=== PATIENT | male | born 1945 | race Caucasian/White ===

== ENCOUNTER 2020-10-06 12:35 | Inpatient (IN) ==
[2020-10-06 13:41] LABS: Basophils % 0.4 %; Eosinophils % 0.5 %; Hematocrit 44.2 % (37.5-50.1); Hemoglobin 15.1 g/dL (12.9-16.9); Immature Granulocytes % 3.2 % (0-4); Lymphocytes # 0.3 K/mcL (0.6-4.6); Lymphocytes % 5.1 %; Mean Corpuscular HGB Conc 34.2 g/dL (31.6-35.5); Mean Corpuscular Hemoglobin 28.1 pg (28.0-33.3); Mean Corpuscular Volume 82.2 fL (83.0-100.0); Mean Platelet Volume 9.1 fL (9.4-12.4); Monocytes # 0.4 K/mcL (0.0-1.3); Monocytes % 7.7 %; Neutrophils # 4.7 K/mcL (1.6-8.9); Platelet Count 223 K/mcL (140-400); Red Blood Count 5.38 M/mcL (4.19-5.50); Red Cell Distribution Width 13.6 % (11.5-14.5); Segmented Neutrophils % 83.1 %; White Blood Count 5.7 K/mcL (4.3-11.1)
[2020-10-06 13:49] LABS: INR 2.3; Prothrombin Time 25.7 Seconds (9.4-12.1)
[2020-10-06 13:52] LABS: Activated Partial Thrombo Time 41.5 Seconds (26.0-36.0)
[2020-10-06 13:56] LABS: Alanine Aminotransferase 14 Units/L (7-52); Albumin 3.4 g/dL (3.5-5.7); Albumin/Globulin Ratio 1.3 (1.1-2.2); Alkaline Phosphatase 63 Units/L (34-104); Aspartate Amino Transferase 20 Units/L (13-39); BUN/Creatinine Ratio 23 (6-26); Bilirubin,Total 0.8 mg/dL (0.3-1.0); Blood Urea Nitrogen 24 mg/dL (8-23); Calcium 8.6 mg/dL (8.6-10.3); Carbon Dioxide 26 mEq/L (23-29); Chloride 97 mEq/L (98-107); Globulin 2.6 g/dL (2.4-3.5); Glucose 119 mg/dL (70-105); Osmolality,Calculated 279 (280-300); Phosphorous 2.2 mg/dL (2.7-4.5); Potassium 3.1 mEq/L (3.5-5.1); Sodium 132 mEq/L (136-145); eGFR For African Americans > 60 (> 60); eGFR For Non-African Americans > 60 (> 60)
[2020-10-06 13:57] LABS: Troponin I < 0.03 ng/mL (< 0.04)
[2020-10-06] MEDS ORDERED: Naloxone 0.4 MG/ML INJ IVP PRN (15:50)
[2020-10-06] MEDS ORDERED: Dexamethasone Sodium Phos/PF 10 MG/ML VIAL IVP ONE (16:01)
[2020-10-06] MEDS: Ipratropium 1 PUFF INHALER IH SCH ×2 (16:37→20:01)
[2020-10-06] MEDS: levoFLOXacin 750 MG/150 ML 750 MG/150 ML BAG IVPB SCH (17:37)
[2020-10-06] MEDS: carvediloL 6.25 MG TABLET PO SCH (17:39)
[2020-10-06] MEDS: 0.9 % Sodium Chloride w KCl 20 MEQ/1,000 ML MLS IVC SCH (17:41)
[2020-10-07] MEDS: Ipratropium 1 PUFF INHALER IH SCH ×7 (00:12→23:47)
[2020-10-07] MEDS: *HR* Enoxaparin 40 MG/0.4 ML SYRINGE SQ SCH (05:28)
[2020-10-07] MEDS: 0.9 % Sodium Chloride w KCl 20 MEQ/1,000 ML MLS IVC SCH ×3 (05:29→21:50)
[2020-10-07 06:13] LABS: Hematocrit 35.1 % (37.5-50.1); Hemoglobin 11.9 g/dL (12.9-16.9); Mean Corpuscular HGB Conc 33.9 g/dL (31.6-35.5); Mean Corpuscular Hemoglobin 27.9 pg (28.0-33.3); Mean Corpuscular Volume 82.2 fL (83.0-100.0); Platelet Count 199 K/mcL (140-400); Red Blood Count 4.27 M/mcL (4.19-5.50); Red Cell Distribution Width 13.5 % (11.5-14.5); White Blood Count 4.3 K/mcL (4.3-11.1)
[2020-10-07 06:27] LABS: Activated Partial Thrombo Time 41.8 Seconds (26.0-36.0)
[2020-10-07 06:30] LABS: INR 2.2; Prothrombin Time 24.4 Seconds (9.4-12.1)
[2020-10-07 06:35] LABS: Alanine Aminotransferase 13 Units/L (7-52); Albumin 2.8 g/dL (3.5-5.7); Albumin/Globulin Ratio 1.3 (1.1-2.2); Alkaline Phosphatase 53 Units/L (34-104); Aspartate Amino Transferase 18 Units/L (13-39); BUN/Creatinine Ratio 22 (6-26); Bilirubin,Total 0.8 mg/dL (0.3-1.0); Blood Urea Nitrogen 21 mg/dL (8-23); Carbon Dioxide 25 mEq/L (23-29); Chloride 102 mEq/L (98-107); Globulin 2.2 g/dL (2.4-3.5); Glucose 112 mg/dL (70-105); Magnesium 1.8 mg/dL (1.6-2.6); Osmolality,Calculated 280 (280-300); Phosphorous 1.9 mg/dL (2.7-4.5); Potassium 3.7 mEq/L (3.5-5.1); Sodium 133 mEq/L (136-145); eGFR For African Americans > 60 (> 60); eGFR For Non-African Americans > 60 (> 60)
[2020-10-07] MEDS ORDERED: Dexamethasone 4 MG/ML VIAL IVP ONE (09:00)
[2020-10-07] MEDS: Aspirin Enteric Coated 81 MG Tablet PO SCH (09:40)
[2020-10-07] MEDS: carvediloL 6.25 MG TABLET PO SCH ×2 (09:41→17:47)
[2020-10-07 12:48] LABS: C-Reactive Protein 118 mg/L (Less than 10)
[2020-10-07 13:06] LABS: Ferritin 950 ng/mL (20-250)
[2020-10-07] MEDS: levoFLOXacin 750 MG/150 ML 750 MG/150 ML BAG IVPB SCH (17:46)
[2020-10-08] MEDS: *HR* Enoxaparin 40 MG/0.4 ML SYRINGE SQ SCH (04:59)
[2020-10-08] MEDS: Ipratropium 1 PUFF INHALER IH SCH ×4 (04:59→16:45)
[2020-10-08] MEDS: 0.9 % Sodium Chloride w KCl 20 MEQ/1,000 ML MLS IVC SCH ×2 (07:56→20:07)
[2020-10-08] MEDS: carvediloL 6.25 MG TABLET PO SCH ×2 (07:57→17:23)
[2020-10-08] MEDS: Aspirin Enteric Coated 81 MG Tablet PO SCH (07:58)
[2020-10-08] MEDS: levoFLOXacin 750 MG/150 ML 750 MG/150 ML BAG IVPB SCH (17:23)
[2020-10-09] MEDS: Ipratropium 1 PUFF INHALER IH SCH ×8 (00:27→23:57)
[2020-10-09] MEDS: 0.9 % Sodium Chloride w KCl 20 MEQ/1,000 ML MLS IVC SCH ×2 (05:34→06:28)
[2020-10-09] MEDS: *HR* Enoxaparin 40 MG/0.4 ML SYRINGE SQ SCH (05:36)
[2020-10-09 05:51] LABS: Hematocrit 32.2 % (37.5-50.1); Hemoglobin 10.8 g/dL (12.9-16.9); Mean Corpuscular HGB Conc 33.5 g/dL (31.6-35.5); Mean Corpuscular Volume 83.4 fL (83.0-100.0); Platelet Count 174 K/mcL (140-400); Red Blood Count 3.86 M/mcL (4.19-5.50); Red Cell Distribution Width 13.4 % (11.5-14.5); White Blood Count 4.3 K/mcL (4.3-11.1)
[2020-10-09 06:03] LABS: INR 1.4; Prothrombin Time 15.9 Seconds (9.4-12.1)
[2020-10-09 06:06] LABS: Activated Partial Thrombo Time 36.6 Seconds (26.0-36.0)
[2020-10-09 06:15] LABS: Alanine Aminotransferase 16 Units/L (7-52); Albumin 2.4 g/dL (3.5-5.7); Albumin/Globulin Ratio 1.3 (1.1-2.2); Alkaline Phosphatase 49 Units/L (34-104); Aspartate Amino Transferase 18 Units/L (13-39); BUN/Creatinine Ratio 18 (6-26); Bilirubin,Total 0.7 mg/dL (0.3-1.0); Blood Urea Nitrogen 17 mg/dL (8-23); Calcium 7.7 mg/dL (8.6-10.3); Carbon Dioxide 23 mEq/L (23-29); Chloride 104 mEq/L (98-107); Globulin 1.9 g/dL (2.4-3.5); Glucose 90 mg/dL (70-105); Magnesium 1.5 mg/dL (1.6-2.6); Osmolality,Calculated 275 (280-300); Potassium 3.9 mEq/L (3.5-5.1); Sodium 132 mEq/L (136-145); Total Protein 4.3 g/dL (6.4-8.9); eGFR For African Americans > 60 (> 60); eGFR For Non-African Americans > 60 (> 60)
[2020-10-09 08:42] LABS: C-Reactive Protein 110 mg/L (Less than 10)
[2020-10-09 09:00] LABS: Ferritin 635 ng/mL (20-250)
[2020-10-09] MEDS: carvediloL 6.25 MG TABLET PO SCH ×2 (09:52→16:29)
[2020-10-09] MEDS: Aspirin Enteric Coated 81 MG Tablet PO SCH (09:53)
[2020-10-09] MEDS: levoFLOXacin 750 MG/150 ML 750 MG/150 ML BAG IVPB SCH (16:29)
[2020-10-10] MEDS: Ipratropium 1 PUFF INHALER IH SCH ×2 (03:57→07:46)
[2020-10-10] MEDS: *HR* Enoxaparin 40 MG/0.4 ML SYRINGE SQ SCH (06:07)
[2020-10-10 07:45] VITALS: BP 120/65
== END 2020-10-10 08:02 | disposition other institution (70) | DRG 177 ==
LOC: INPGRE 12:35 → EMEROOGRE 12:35 → INPGRE 15:47
PROVIDERS: ADMIT Family Medicine; ATTEND Family Medicine

== ENCOUNTER 2020-10-09 17:17 | Inpatient (IN) ==
[2020-10-10 05:09] LABS: Hematocrit 30.8 % (37.5-50.1); Hemoglobin 10.3 g/dL (12.9-16.9); Mean Corpuscular HGB Conc 33.4 g/dL (31.6-35.5); Mean Corpuscular Hemoglobin 27.9 pg (28.0-33.3); Mean Corpuscular Volume 83.5 fL (83.0-100.0); Platelet Count 184 K/mcL (140-400); Red Blood Count 3.69 M/mcL (4.19-5.50); Red Cell Distribution Width 13.3 % (11.5-14.5); White Blood Count 3.8 K/mcL (4.3-11.1)
[2020-10-10 05:25] LABS: BUN/Creatinine Ratio 14 (6-26); Blood Urea Nitrogen 14 mg/dL (8-23); Calcium 7.9 mg/dL (8.6-10.3); Carbon Dioxide 26 mEq/L (23-29); Chloride 104 mEq/L (98-107); Glucose 93 mg/dL (70-105); Magnesium 1.7 mg/dL (1.6-2.6); Osmolality,Calculated 278 (280-300); Potassium 4.6 mEq/L (3.5-5.1); Sodium 134 mEq/L (136-145); eGFR For African Americans > 60 (> 60); eGFR For Non-African Americans > 60 (> 60)
[2020-10-10 08:44] LABS: C-Reactive Protein 136 mg/L (Less than 10)
[2020-10-10] MEDS ORDERED: dexAMETHasone 4 MG TABLET PO SCH (09:00)
[2020-10-10] MEDS: Aspirin Enteric Coated 81 MG Tablet PO SCH (10:24)
[2020-10-10] MEDS: BuPROPion SR (12 HR) 100 MG TABLET PO SCH ×3 (10:24→20:53)
[2020-10-10] MEDS: levoFLOXacin 750 MG TABLET PO SCH (10:25)
[2020-10-10] MEDS: carvediloL 6.25 MG TABLET PO SCH ×2 (10:25→18:06)
[2020-10-11] MEDS: levoFLOXacin 750 MG TABLET PO SCH (09:24)
[2020-10-11] MEDS: Aspirin Enteric Coated 81 MG Tablet PO SCH (09:24)
[2020-10-11] MEDS: BuPROPion SR (12 HR) 100 MG TABLET PO SCH ×2 (09:24→19:34)
[2020-10-11] MEDS: carvediloL 6.25 MG TABLET PO SCH ×2 (09:25→18:05)
[2020-10-11] MEDS: dexAMETHasone 4 MG TABLET PO SCH (09:25)
[2020-10-12] MEDS: *HR* Enoxaparin 40 MG/0.4 ML SYRINGE SQ SCH (06:08)
[2020-10-12] MEDS: carvediloL 6.25 MG TABLET PO SCH ×2 (08:47→18:01)
[2020-10-12] MEDS: Aspirin Enteric Coated 81 MG Tablet PO SCH (08:48)
[2020-10-12] MEDS: dexAMETHasone 4 MG TABLET PO SCH (08:48)
[2020-10-12] MEDS: BuPROPion SR (12 HR) 100 MG TABLET PO SCH ×2 (08:48→20:39)
[2020-10-12 11:36] LABS: Basophils % 0.5 %; Eosinophils % 0.3 %; Immature Granulocytes % 2.1 % (0-4); Lymphocytes # 0.3 K/mcL (0.6-4.6); Lymphocytes % 4.1 %; Mean Corpuscular HGB Conc 33.3 g/dL (31.6-35.5); Mean Corpuscular Hemoglobin 27.7 pg (28.0-33.3); Mean Corpuscular Volume 83.1 fL (83.0-100.0); Mean Platelet Volume 8.8 fL (9.4-12.4); Monocytes % 7.2 %; Neutrophils # 5.3 K/mcL (1.6-8.9); Platelet Count 234 K/mcL (140-400); Red Blood Count 3.97 M/mcL (4.19-5.50); Red Cell Distribution Width 13.3 % (11.5-14.5); Segmented Neutrophils % 85.8 %; White Blood Count 6.2 K/mcL (4.3-11.1)
[2020-10-12 11:52] LABS: BUN/Creatinine Ratio 23 (6-26); Blood Urea Nitrogen 20 mg/dL (8-23); Carbon Dioxide 29 mEq/L (23-29); Chloride 102 mEq/L (98-107); Glucose 91 mg/dL (70-105); Osmolality,Calculated 284 (280-300); Potassium 3.4 mEq/L (3.5-5.1); Sodium 136 mEq/L (136-145); eGFR For African Americans > 60 (> 60); eGFR For Non-African Americans > 60 (> 60)
[2020-10-12 12:04] LABS: Monocytes # 0.5 K/mcL (0.0-1.3)
[2020-10-12 20:21] LABS: C-Reactive Protein 36 mg/L (Less than 10)
[2020-10-12 20:34] LABS: Ferritin 640 ng/mL (20-250)
[2020-10-13] MEDS: *HR* Enoxaparin 40 MG/0.4 ML SYRINGE SQ SCH (05:23)
[2020-10-13] MEDS: Aspirin Enteric Coated 81 MG Tablet PO SCH (09:46)
[2020-10-13] MEDS: dexAMETHasone 4 MG TABLET PO SCH (09:46)
[2020-10-13] MEDS: carvediloL 6.25 MG TABLET PO SCH ×2 (09:46→18:56)
[2020-10-13] MEDS: BuPROPion SR (12 HR) 100 MG TABLET PO SCH ×2 (09:46→21:14)
[2020-10-14] MEDS: *HR* Enoxaparin 40 MG/0.4 ML SYRINGE SQ SCH (05:07)
[2020-10-14 06:24] LABS: Basophils % 0.6 %; Eosinophils % 0.4 %; Hematocrit 31.7 % (37.5-50.1); Hemoglobin 10.5 g/dL (12.9-16.9); Immature Granulocytes % 4.2 % (0-4); Lymphocytes # 0.4 K/mcL (0.6-4.6); Lymphocytes % 7.3 %; Mean Corpuscular HGB Conc 33.1 g/dL (31.6-35.5); Mean Corpuscular Hemoglobin 27.9 pg (28.0-33.3); Mean Corpuscular Volume 84.3 fL (83.0-100.0); Mean Platelet Volume 8.8 fL (9.4-12.4); Monocytes # 0.6 K/mcL (0.0-1.3); Monocytes % 10.8 %; Neutrophils # 4.2 K/mcL (1.6-8.9); Platelet Count 215 K/mcL (140-400); Red Blood Count 3.76 M/mcL (4.19-5.50); Red Cell Distribution Width 13.6 % (11.5-14.5); Segmented Neutrophils % 76.7 %; White Blood Count 5.5 K/mcL (4.3-11.1)
[2020-10-14 06:42] LABS: BUN/Creatinine Ratio 21 (6-26); Blood Urea Nitrogen 20 mg/dL (8-23); Carbon Dioxide 33 mEq/L (23-29); Chloride 98 mEq/L (98-107); Glucose 99 mg/dL (70-105); Osmolality,Calculated 283 (280-300); Potassium 4.1 mEq/L (3.5-5.1); Sodium 135 mEq/L (136-145); eGFR For African Americans > 60 (> 60); eGFR For Non-African Americans > 60 (> 60)
[2020-10-14] MEDS: Aspirin Enteric Coated 81 MG Tablet PO SCH (08:14)
[2020-10-14] MEDS: dexAMETHasone 4 MG TABLET PO SCH (08:14)
[2020-10-14] MEDS: BuPROPion SR (12 HR) 100 MG TABLET PO SCH ×2 (08:14→21:00)
[2020-10-14] MEDS: carvediloL 6.25 MG TABLET PO SCH ×2 (08:14→17:02)
[2020-10-15] MEDS: *HR* Enoxaparin 40 MG/0.4 ML SYRINGE SQ SCH (06:29)
[2020-10-15] MEDS: carvediloL 6.25 MG TABLET PO SCH ×2 (09:10→17:13)
[2020-10-15] MEDS: BuPROPion SR (12 HR) 100 MG TABLET PO SCH ×3 (09:10→19:58)
[2020-10-15] MEDS: Aspirin Enteric Coated 81 MG Tablet PO SCH (09:20)
[2020-10-16] MEDS: *HR* Enoxaparin 40 MG/0.4 ML SYRINGE SQ SCH (05:51)
[2020-10-16] MEDS: carvediloL 6.25 MG TABLET PO SCH ×2 (08:26→17:35)
[2020-10-16] MEDS: Aspirin Enteric Coated 81 MG Tablet PO SCH (08:26)
[2020-10-16] MEDS: BuPROPion SR (12 HR) 100 MG TABLET PO SCH ×2 (10:00→20:19)
[2020-10-17 04:44] LABS: Hematocrit 33.9 % (37.5-50.1); Hemoglobin 11.2 g/dL (12.9-16.9); Mean Corpuscular Hemoglobin 28.3 pg (28.0-33.3); Mean Corpuscular Volume 85.6 fL (83.0-100.0); Mean Platelet Volume 8.9 fL (9.4-12.4); Platelet Count 188 K/mcL (140-400); Red Blood Count 3.96 M/mcL (4.19-5.50); Red Cell Distribution Width 14.3 % (11.5-14.5); White Blood Count 5.4 K/mcL (4.3-11.1)
[2020-10-17 05:02] LABS: Alanine Aminotransferase 27 Units/L (7-52); Albumin 2.9 g/dL (3.5-5.7); Albumin/Globulin Ratio 1.1 (1.1-2.2); Alkaline Phosphatase 71 Units/L (34-104); Aspartate Amino Transferase 18 Units/L (13-39); BUN/Creatinine Ratio 22 (6-26); Bilirubin,Total 0.4 mg/dL (0.3-1.0); Blood Urea Nitrogen 22 mg/dL (8-23); Calcium 8.8 mg/dL (8.6-10.3); Carbon Dioxide 29 mEq/L (23-29); Chloride 99 mEq/L (98-107); Globulin 2.6 g/dL (2.4-3.5); Glucose 104 mg/dL (70-105); Osmolality,Calculated 284 (280-300); Potassium 5.1 mEq/L (3.5-5.1); Sodium 135 mEq/L (136-145); Total Protein 5.5 g/dL (6.4-8.9); eGFR For African Americans > 60 (> 60); eGFR For Non-African Americans > 60 (> 60)
[2020-10-17] MEDS: *HR* Enoxaparin 40 MG/0.4 ML SYRINGE SQ SCH (05:54)
[2020-10-17] MEDS: Aspirin Enteric Coated 81 MG Tablet PO SCH (09:44)
[2020-10-17] MEDS: BuPROPion SR (12 HR) 100 MG TABLET PO SCH ×2 (09:44→20:14)
[2020-10-17] MEDS: carvediloL 6.25 MG TABLET PO SCH ×2 (09:44→19:21)
[2020-10-18] MEDS: *HR* Enoxaparin 40 MG/0.4 ML SYRINGE SQ SCH (04:50)
[2020-10-18] MEDS: carvediloL 6.25 MG TABLET PO SCH ×2 (07:56→17:33)
[2020-10-18] MEDS: BuPROPion SR (12 HR) 100 MG TABLET PO SCH ×2 (09:10→21:18)
[2020-10-18] MEDS: Aspirin Enteric Coated 81 MG Tablet PO SCH (09:10)
[2020-10-19] MEDS: *HR* Enoxaparin 40 MG/0.4 ML SYRINGE SQ SCH (07:01)
[2020-10-19] MEDS: Aspirin Enteric Coated 81 MG Tablet PO SCH (10:22)
[2020-10-19] MEDS: carvediloL 6.25 MG TABLET PO SCH ×2 (10:23→16:34)
[2020-10-19] MEDS: BuPROPion SR (12 HR) 100 MG TABLET PO SCH ×2 (10:23→20:10)
[2020-10-20] MEDS: *HR* Enoxaparin 40 MG/0.4 ML SYRINGE SQ SCH (06:44)
[2020-10-20] MEDS: BuPROPion SR (12 HR) 100 MG TABLET PO SCH ×2 (09:43→20:27)
[2020-10-20] MEDS: carvediloL 6.25 MG TABLET PO SCH ×2 (09:43→17:25)
[2020-10-20] MEDS: Aspirin Enteric Coated 81 MG Tablet PO SCH (09:43)
[2020-10-21] MEDS: *HR* Enoxaparin 40 MG/0.4 ML SYRINGE SQ SCH (05:37)
[2020-10-21] MEDS: Aspirin Enteric Coated 81 MG Tablet PO SCH (10:08)
[2020-10-21] MEDS: BuPROPion SR (12 HR) 100 MG TABLET PO SCH ×2 (10:08→22:35)
[2020-10-21] MEDS: carvediloL 6.25 MG TABLET PO SCH ×2 (10:08→18:02)
[2020-10-21] MEDS ORDERED: MOM Conc 10 ML UD.LIQ PO PRN (23:05)
[2020-10-22] MEDS: *HR* Enoxaparin 40 MG/0.4 ML SYRINGE SQ SCH (06:14)
[2020-10-22] MEDS: carvediloL 6.25 MG TABLET PO SCH ×2 (09:34→18:05)
[2020-10-22] MEDS: Aspirin Enteric Coated 81 MG Tablet PO SCH (09:34)
[2020-10-22] MEDS: BuPROPion SR (12 HR) 100 MG TABLET PO SCH ×2 (09:34→21:06)
[2020-10-23] MEDS: *HR* Enoxaparin 40 MG/0.4 ML SYRINGE SQ SCH (05:47)
[2020-10-23] MEDS: carvediloL 6.25 MG TABLET PO SCH ×2 (07:21→16:49)
[2020-10-23] MEDS: Aspirin Enteric Coated 81 MG Tablet PO SCH (07:50)
[2020-10-23] MEDS: BuPROPion SR (12 HR) 100 MG TABLET PO SCH ×2 (07:50→21:42)
[2020-10-24] MEDS: *HR* Enoxaparin 40 MG/0.4 ML SYRINGE SQ SCH (06:17)
[2020-10-24] MEDS: carvediloL 6.25 MG TABLET PO SCH ×2 (07:52→16:51)
[2020-10-24] MEDS: BuPROPion SR (12 HR) 100 MG TABLET PO SCH ×2 (07:52→23:05)
[2020-10-24] MEDS: Aspirin Enteric Coated 81 MG Tablet PO SCH (07:52)
[2020-10-25 05:05] LABS: Basophils % 0.5 %; Eosinophils # 0.3 K/mcL (0.0-0.6); Eosinophils % 5.4 %; Hematocrit 33.9 % (37.5-50.1); Hemoglobin 11.2 g/dL (12.9-16.9); Immature Granulocytes % 2.3 % (0-4); Lymphocytes # 0.6 K/mcL (0.6-4.6); Lymphocytes % 11.5 %; Mean Corpuscular Hemoglobin 28.4 pg (28.0-33.3); Mean Platelet Volume 9.2 fL (9.4-12.4); Monocytes # 0.6 K/mcL (0.0-1.3); Monocytes % 10.5 %; Neutrophils # 3.9 K/mcL (1.6-8.9); Platelet Count 185 K/mcL (140-400); Red Blood Count 3.94 M/mcL (4.19-5.50); Segmented Neutrophils % 69.8 %; White Blood Count 5.6 K/mcL (4.3-11.1)
[2020-10-25 05:20] LABS: BUN/Creatinine Ratio 23 (6-26); Blood Urea Nitrogen 24 mg/dL (8-23); Calcium 8.8 mg/dL (8.6-10.3); Carbon Dioxide 30 mEq/L (23-29); Chloride 101 mEq/L (98-107); Glucose 104 mg/dL (70-105); Osmolality,Calculated 284 (280-300); Potassium 4.4 mEq/L (3.5-5.1); Sodium 135 mEq/L (136-145); eGFR For African Americans > 60 (> 60); eGFR For Non-African Americans > 60 (> 60)
[2020-10-25] MEDS: *HR* Enoxaparin 40 MG/0.4 ML SYRINGE SQ SCH (05:36)
[2020-10-25] MEDS: Aspirin Enteric Coated 81 MG Tablet PO SCH (12:11)
[2020-10-25] MEDS: BuPROPion SR (12 HR) 100 MG TABLET PO SCH ×2 (12:11→20:12)
[2020-10-25] MEDS: carvediloL 6.25 MG TABLET PO SCH ×2 (12:12→18:45)
[2020-10-26] MEDS: *HR* Enoxaparin 40 MG/0.4 ML SYRINGE SQ SCH (06:34)
[2020-10-26] MEDS: BuPROPion SR (12 HR) 100 MG TABLET PO SCH ×2 (08:57→20:41)
[2020-10-26] MEDS: Aspirin Enteric Coated 81 MG Tablet PO SCH (08:57)
[2020-10-26] MEDS: carvediloL 6.25 MG TABLET PO SCH ×2 (08:57→16:59)
[2020-10-27] MEDS: *HR* Enoxaparin 40 MG/0.4 ML SYRINGE SQ SCH (05:06)
[2020-10-27] MEDS: Aspirin Enteric Coated 81 MG Tablet PO SCH (09:22)
[2020-10-27] MEDS: carvediloL 6.25 MG TABLET PO SCH (09:22)
[2020-10-27] MEDS: BuPROPion SR (12 HR) 100 MG TABLET PO SCH (09:22)
[2020-10-27 09:24] VITALS: BP 112/64
[2020-10-27] MEDS ORDERED: FLU Vac QV 20-21 (6Month+)/PF 0.5 ML SYRINGE IM ONE (13:02)
== END 2020-10-27 13:35 | disposition home health service (06) | DRG 177 ==
LOC: INPGRE 10-10 08:05
PROVIDERS: ADMIT Family Medicine; ATTEND Family Medicine